=== PATIENT | female | born 1965 | race Caucasian/White ===

== ENCOUNTER 2018-10-02 09:21 | Emergency (ER) | payer MEDICARE, OTHER ==
[2018-10-02] MEDS ORDERED: Ketorolac INJ* 60 MG/2 ML VIAL IM ONE (10:06)
[2018-10-02] MEDS ORDERED: Orphenadrine Citrate IV* 30 MG/ML 2 ML VIAL IM ONE (10:06)
--- NOTE | 2018-10-02 10:08 | ED ---
Back Pain - HPI Summary HPI Summary: Patient is a 53-year-old female who presents emergency department for back pain 5 days. Patient does not recall any specific injuries other than bending over to tie her shoe. Patient states had back pain in the past but pain today is more severe. Is located to the upper lumbar spine and radiates occasionally into legs. Denies numbness, tingling or weakness in lower extremities. Denies bowel or bladder incontinence or retention. Denies fever, abdominal pain, urinary symptoms. She has been taking naproxen with minimal relief of symptoms. Symptoms are mild.. Movement makes symptoms worse. Nothing makes symptoms better. - History of Current Complaint Chief Complaint: EDBackInjuryPain Stated Complaint: BACK PAIN Time Seen by Provider: 10/02/18 09:37 Hx Obtained From: Patient Pain Intensity: 3 - Allergies/Home Medications Allergies/Adverse Reactions: Allergies Allergy/AdvReac Type Severity Reaction Status Date / Time Sulfa (Sulfonamide Allergy Rash Verified 10/02/18 09:29 Antibiotics) PMH/Surg Hx/FS Hx/Imm Hx Previously Healthy: Yes Infectious Disease History: No Infectious Disease History: Denies: Traveled Outside the [place] in Last 30 Days - Family History Known Family History: Positive: Non-Contributory - Social History Occupation: Disabled Lives: Dormitory/Roommates Alcohol Use: Occasionally Substance Use Type: Reports: None Smoking Status (MU): Heavy Every Day Tobacco Smoker Review of Systems Constitutional: Negative Negative: Fever, Chills Cardiovascular: Negative Respiratory: Negative Gastrointestinal: Negative Genitourinary: Negative Positive: Other - back pain Neurological: Negative Negative: Weakness, Paresthesia, Numbness All Other Systems Reviewed And Are Negative: Yes Physical Exam Triage Information Reviewed: Yes Vital Signs On Initial Exam: Initial Vitals Temp Pulse Resp BP Pulse Ox 97.5 F 77 16 142/83 97 10/02/18 09:25 10/02/18 09:25 10/02/18 09:25 10/02/18 09:25 10/02/18 09:25 Vital Signs Reviewed: Yes Appearance: Positive: Well-Appearing - Pt. sitting on bed in NAD. Appears uncomfortable but nontoxic. Skin: Positive: Warm, Dry Head/Face: Positive: Normal Head/Face Inspection Eyes: Positive: Normal, EOMI, Conjunctiva Clear Musculoskeletal: Positive: Normal, Strength/ROM Intact, Other - 5 out of 5 strength in bilateral lower extremities with flexion and dorsiflexion. No neurosensory deficits. Patient upper lumbar spine paraspinal muscles. Neurological: Positive: Normal, CN Intact II-III Diagnostics - Vital Signs Vital Signs Temp Pulse Resp BP Pulse Ox 10/02/18 09:25 97.5 F 77 16 142/83 97 - Laboratory Lab Statement: Any lab studies that have been ordered have been reviewed, and results considered in the medical decision making process. Back Pain Course/Dx - Course Course Of Treatment: Patient presenting with atraumatic neck pain. No neurological deficits or evidence of cauda equina syndrome. Afebrile. X-rays show degenerative changes without acute findings, reading per radiology. Patient was given Toradol and Norflex in the ER with improvement of symptoms. We'll keep on anti-inflammatories and Flexeril. Advised warm compresses. Avoid heavy lifting. Close follow-up with family doctor return to the ER symptoms change or worsen. Patient understands and agrees with plan. - Diagnoses Differential Diagnosis/HQI/PQRI: Positive: Cauda Equina Syndrome, Compressive Cord Syndrome, Epidural Abscess, Fracture, Herniated Disc, Septic Arthritis, Strain, Sprain Provider Diagnoses: Lumbar strain, Muscle spasm Discharge - Sign-Out/Discharge Documenting (check all that apply): Patient Departure Patient Received Moderate/Deep Sedation with Procedure: No - Discharge Plan Condition: Improved Disposition: HOME Prescriptions: Cyclobenzaprine TAB* [Flexeril 10 MG TAB*] 10 mg PO TID PRN #12 tab PRN Reason: Pain Naproxen [Naproxen 500 mg tab] 500 mg PO BID #20 tablet Patient Education Materials: Low Back Strain (ED), Muscle Spasm (ED) Referrals: Jeannine Og PA [Primary Care Provider] - Additional Instructions: Call your PCP today for a close follow up appointment Take medication as directed Apply warm compresses Avoid heavy lifting Gentle stretching Return to ER if symptoms change or worsen - Billing Disposition and Condition Condition: IMPROVED Disposition: Home
[2018-10-02 11:40] VITALS: BP 151/73
== END 2018-10-02 11:39 | disposition home or self-care (01) ==
LOC: ED 09:21
DX: S39.012A Strain of muscle, fascia and tendon of lower back, initial encounter (principal); X58.XXXA Exposure to other specified factors, initial encounter; Y92.9 Unspecified place or not applicable; M62.830 Muscle spasm of back; M47.817 Spondylosis without myelopathy or radiculopathy, lumbosacral region; M51.37 Other intervertebral disc degeneration, lumbosacral region; Z88.2 Allergy status to sulfonamides; F17.200 Nicotine dependence, unspecified, uncomplicated
CPT/HCPCS: 72110; 96372; 99282; J1885; J2360